=== PATIENT | male | born 1980 | race Caucasian/White ===

== ENCOUNTER 2025-05-05 11:49 | Observation (INO) | payer MEDICAID, SELFPAY ==
--- NOTE | ~2025-05-05 | CT_ITS ---
EXAM: CT abdomen pelvis w con - 05/05/2025 13:08 CDT History: 44 years old Male with left sided abd pain. TECHNIQUE: Multidetector CT of the abdomen and pelvis with intravenous contrast. Coronal and sagitta l reformats were also provided for review. Automatic exposure control was used for this study. CONTRAST: 100 cc of Optiray 350 was used for this study. COMPARISON: None Available. FINDINGS: VISUALIZED CHEST: Mild dependent changes. ABDOMEN and PELVIS: LIVER: Fatty infiltration along the falciform ligament. GALLBLADDER: No calcified gallstones. BILE DUCTS: No dilatation. SPLEEN: Within normal limits. PANCREAS: Within normal limits. ADRENAL GLANDS: Within normal limits. KIDNEYS and URETERS: No hydronephrosis or hydroureter. No nephroureterolithiasis. URINARY BLADDER: Moderate diffuse thickening of the urinary bladder wall. STOMACH and BOWEL: Multiple fluid-filled distended loops of bowel are seen, a nonspecific finding and can be seen in enteritis. REPRODUCTIVE ORGANS: Enlarged prostate. MESENTERY/PERITONEAL CAVITY: No free fluid or pneumoperitoneum. LYMPH NODES: No abdominal or pelvic lymphadenopathy. ABDOMINAL WALL: Within normal limits. VASCULATURE: Within normal limits. MUSCULOSKELETAL: Multilevel degenerative changes of the spine. IMPRESSION: 1. Moderate diffuse thickening of the urinary bladder wall. Correlate with urinalysis to rule out ac scarlett cystitis. 2. Multiple fluid-filled distended loops of bowel are seen, a nonspecific finding and can be seen in enteritis. 3. Enlarged prostate Reviewed, dictated and finalized at location A. IMPRESSION: 1. Moderate diffuse thickening of the urinary bladder wall. Correlate with uri nalysis to rule out acute cystitis. 2. Multiple fluid-filled distended loops of bowel are seen, a nonspecific find ing and can be seen in enteritis. 3. Enlarged prostate
--- NOTE | ~2025-05-05 | CT_ITS ---
EXAM: CT brain wo con - 05/05/2025 13:04 CDT History: 44 years old Male with ams COMPARISON: None available. PROCEDURE: CT of the head without contrast. Axial, sagittal and coronal reformatted planes were lizzy luated. Automatic exposure control was used for this study. FINDINGS: Evaluation is limited secondary to artifact caused by the patient's motion. BRAIN PARENCHYMA: No acute hemorrhage. No mass effect or herniation. Guzman-white matter differentiatio n is maintained. Normal appearance of cortex. VENTRICLES/ EXTRA-AXIAL SPACES: No hydrocephalus or extra-axial fluid collection. EXTRACRANIAL STRUCTURES: No calvarial fracture. IMPRESSION: No evidence for acute intracranial hemorrhage or calvarial fracture. Reviewed, dictated and finalized at location A.
[2025-05-05 11:51] VITALS: BP 131/94; PULSE 94; RESP 20; TEMP 36.9; O2SAT 98
--- NOTE | 2025-05-05 12:02 | ECG_ITS ---
Test Date: 2025-05-05 12:06:51 Measurements Intervals [place]ye Rate: 92 P: 11 AL: 112 QRS: 55 QRSD: 90 T: 38 QT: 359 QTc: 444 Interpretive Statements SINUS RHYTHM WITH SHORT AL INTERVAL ABNORMAL ECG No previous ECG available for comparison Electronically Signed On 05-05-2025 14:08:07 CDT by Dae Mckenzie M.D.
[2025-05-05 12:15] VITALS: BP 136/98; PULSE 83; RESP 19; O2SAT 94
[2025-05-05 12:21] LABS: Hematocrit 44.1 % (42.0-52.0); Hemoglobin 15.4 g/dL (14.0-18.0); Immature Granulocyte Percent A 0.3 % (0-0.5); Lymphocytes Absolute Auto 1.40 K/mm3 (0.9-3.2); Mean Corpuscular HGB Conc 34.9 g/dl (32-36); Mean Corpuscular Hemoglobin 28.9 pg (26-34); Mean Corpuscular Volume 82.9 fl (80-100); Nucleated Red Blood Cells Absolute Auto 0.000 K/mm3 (0.0-0.012); Nucleated Red Blood Cells Perc 0.0 % (0.0-0.2); Platelet Count Result 223 k/mm3 (150-375); Red Blood Count 5.32 M/mm3 (4.6-6.20); White Blood Count 7.0 K/mm3 (4.5-10.0)
[2025-05-05 12:34] LABS: INR 1.1; Prothrombin Time 13.7 Seconds (11.1-14.7)
[2025-05-05 12:35] LABS: Partial Thromboplastin Time 25.0 Seconds (22.3-36.8)
[2025-05-05 12:41] LABS: Alanine Aminotransferase 39 U/L (6-50); Albumin Level 4.3 g/dL (3.5-5.1); Alkaline Phosphatase 73 U/L (38-126); Anion Gap 8 mmol/L (4-12); Aspartate Amino Transferase 48 U/L (17-59); Bilirubin,Total 1.0 mg/dL (0.2-1.3); Blood Urea Nitrogen 14 mg/dL (9-20); Calcium 9.2 mg/dL (8.4-10.2); Carbon Dioxide 27 mmol/L (22-30); Chloride 104 mmol/L (98-107); Estimated CRCL calculation 99 ml/min; Estimated Glomerular Filt Rate > 60; Glucose 97 mg/dL (65-110); Potassium 3.1 mmol/L (3.4-5.0); Sodium 139 mmol/L (137-145); Total Protein 7.2 g/dL (6.3-8.2)
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
[2025-05-05 13:29] LABS: Add Urine Microscopic? YES; Appearance Urine Clear (Clear); Glucose Urine UA Negative (Negative); Leukocyte Esterase Ur Trace LEU/UL (Negative); Need Manual Microscopic Reviewed; Nitrate Urine Negative (Negative); Non Pathogenic Casts 0-2; Specific Grav Ur 1.025 (1.001-1.035)
[2025-05-05 14:15] VITALS: BP 134/87; PULSE 89; RESP 20; O2SAT 97
--- OUTSIDE RECORDS SUMMARY | 2025-05-05 14:27 | XMS_ITS | Clinical Summary ---
Author Organization [employer] [address] [place] [address] Address [address] [place] [address] Care Team Providers Care Nurse Practitioner Hospitalist Name Role Phone Angie Delgado DO Primary Care Provider [phone] Allergies No known active allergies Medications lamoTRIgine (LaMICtal) 200 mg tabletIndicatio ns:Anxiety associated with depression,PTSD (post-traumatic stress disorder) Take 1 Tablet (200 mg) by mouth daily. 30 Tablet 3 024 Active Blood Pressure Monitor KitIndications: Benign essential hypertension Use daily to check blood pressure 1 Each 024 Active fluvoxaMINE (LUVOX) 100 mg tablet Take 100 mg by mouth daily at bedtime. 025 Active rimegepant (Nurtec ODT) 75 mg Tablet, Rapid DissolveIndicat ions:Migraine without status migrainosus, not intractable, unspecified migraine type Take one tablet by mouth as a single dose. Max 75mg in 24 hours 9 Tablet 5 025 Active traZODone (DESYREL) 50 mg tablet Take 50 mg by mouth daily at bedtime. 025 Active hydrOXYzine HCL (ATARAX) 50 mg tablet Take 50 mg by mouth 4 times daily as needed for Anxiety. 025 Active propranoloL (INDERAL LA) 60 mg Long Acting 24 hour capsuleIndicati ons:Migraine without status migrainosus, not intractable, unspecified migraine type Take 1 Capsule (60 mg) by mouth daily. 30 Capsule 3 025 Active cyclobenzaprine (FLEXERIL) 5 mg TabletIndicatio ns:Muscle spasm Take 1 Tablet (5 mg) by mouth 3 times daily as needed for Spasm. 20 Tablet 025 Active TESTOSTERONE ENANTHATE IM Inject by intramuscular injection. Receiving weekly through [facility] Active losartan (COZAAR) 50 mg tabletIndicatio ns:Benign essential hypertension TAKE 1 TABLET(50 MG) BY MOUTH DAILY 100 Tablet 3 025 Active propranoloL (INDERAL) 10 mg tabletIndicatio ns:Anxiety associated with depression,PTSD (post-traumatic stress disorder) Take 1 Tablet (10 mg) by mouth 3 times daily. 90 Tablet 5 024 2024 Discontinued(A lternate therapy prescribed) losartan (COZAAR) 50 mg tabletIndicatio ns:Benign essential hypertension Take 1 Tablet (50 mg) by mouth daily. 90 Tablet 3 024 2024 Discontinued Hospital, Clinic, or Other Facility Administered Medication Ordered Dose Route Frequency Start Date End Date Status ketorolac (TORADOL) injection 10 mgIndications:Othe r migraine with status migrainosus, not intractable 10 mg IM ONE TIME ONLY 04/14/2025 04/14/2025 Discontinu ed ketorolac (TORADOL) injection 30 mgIndications:Othe r migraine with status migrainosus, not intractable 30 mg IM ONE TIME ONLY 04/14/2025 04/14/2025 Ended Active Problems Problem Noted Date Diagnosed Date ADHD 06/16/2024 PTSD (post-traumatic stress disorder) 12/11/2023 Benign essential hypertension 12/11/2023 MADISON (obstructive sleep apnea) 12/11/2023 RAHEL (generalized anxiety disorder) 05/01/2022 Gastroesophageal reflux disease 05/01/2022 Hypertension 05/01/2022 Recurrent major depressive disorder 05/01/2022 Obstructive sleep apnea 05/01/2022 Encounters Date Type Department Care Team Description 04/28/2025 Refill [facility] Internal Medicine [place] Christensen [address] [facility] [address] [place] [phone] Angie Delgado DO Benign essential hypertension 04/22/2025 Telephone [facility] Virtual Neurology [address] [place] [address] Zina Oh RN Follow Up (Neurology) 04/19/2025 Telephone [facility] Internal Medicine [place] Christensen [address] [facility] [address] [place] [phone] Angie Delgado DO Paperwork 04/15/2025 10:30 AM CDT Office Visit [facility] Internal Medicine [place] Christensen [address] [facility] [address] [place], [place] [phone] Angie Delgado DO Migraine without status migrainosus, not intractable, unspecified migraine type (Primary Dx); Muscle spasm; Benign essential hypertension; Anxiety associated with depression; PTSD (post-traumatic stress disorder) 04/14/2025 4:40 PM CDT Office Visit [facility] [place] [address] [address] [facility] [place], [place] [phone] Sheila Joseph NP Other migraine with status migrainosus, not intractable (Primary Dx); Nausea 04/12/2025 Telephone [facility] Internal Medicine [place] [address] [address] [facility] [address] [place], [place] [phone] Angie Delgado DO Results (Blood counts, kidney function, liver function, cholesterol levels look good. No indication of diabetes.) 04/12/2025 Results Follow-Up [facility] Internal Medicine [place] [address] [address] [facility] [address] [place] [phone] Angie Delgado DO CBC WITHOUT DIFFERENTIAL, COMPREHENSIVE METABOLIC PANEL, HEMOGLOBIN A1C, LIPID PANEL 03/14/2025 4:30 PM CDT Office Visit [facility] [place] [address] [place] [phone] Shannon Horvath MD Other migraine without status migrainosus, not intractable (Primary Dx) from Last 3 Months Immunizations Immunization Administration Dates Next Due (SPIKEVAX) (12 YRS UP PRIMAR Y SERIES) COVID-19 VACCINE - MRNA-1273(PF) 100 MCG/0.5 ML IM SUSP 09/10/2021 INFLUENZA VACCINE QUADRIVALENT 6 MOS UP PF IM Influenza Seasonal Unspecified Formulation PF IM 08/27/2024 Social History Tobacco Use Types Packs/Day Years Used Date Smoking Tobacco: Never Passive Smoke Exposure: Never Smokeless Tobacco: Never Tobacco Cessation:Counseling Given: Not Answered Alcohol Use Standard Drinks/Week Comments Not Currently 0 (1 standard drink = 0.6 oz pur e alcohol) Sex and Gender Information Value Date Recorded Sex Assigned at Not on file Legal Sex Male 1:36 PM INFORMATION MANAGEMENT SPECIALIST Gender Identity Not on file Sexual Orientation Not on file Last Filed Vital Signs Vital Sign Reading Time Taken Comments Blood Pressure 118/70 04/15/2025 10:17 AM CDT Pulse 76 04/15/2025 10:17 AM CDT Temperature 36.4 C (97.6 F) 04/15/2025 10:17 AM CDT Respiratory Rate 18 04/14/2025 4:47 PM CDT Oxygen Saturation 96% 04/15/2025 10:17 AM CDT Inhaled Oxygen Concentration - - Weight 89.4 kg (197 lb) 04/15/2025 10:17 AM CDT Height 182.9 cm (6') 04/15/2025 10:17 AM CDT Body Mass Index 26.72 04/15/2025 10:17 AM CDT Plan of Treatment Upcoming Encounters Date Type Department Care Team (Late st Contact Info) Description 12/17/2025 11:00 AM INFORMATION MANAGEMENT SPECIALIST Office Visit [facility] Internal Medicine [place] Christensen [address] [facility] [address] [place] [phone] [place] [address] [facility] [address] [place] [address] Health Maintenance Due Date Last Done Comments HPV VACCINES (1 - Male 3-dose series) 1996 DTAP/TDAP/TD VACCINES (1 - Tdap) 2000 HEPATITIS B VACCINES (1 of 3 - 19+ 3-dose series) 2000 COVID-19 Vaccine (3 - 2023- season) 06/14/202408/2022, 09/10/2021 INFLUENZA VACCINE (#1) 2025 , 08/27/2024, 07/24/2022 Preventative Visit-Managed Medicaid 12/12/2025 12/11/2024, 12/11/2023, 02/20/2016 Pre-Diabetes and Diabetes Screening 04/09/202804/09, 02/12/2024 Procedures Procedure Name Priority Date/Time Associated Diagnosis Comments LIPID PANEL Routine 04/09/2025 12:30 PM CDT MADISON (obstructive sleep apnea) Benign essential hypertension Annual physical exam Screening for cardiovascular condition HEMOGLOBIN A1C Routine 04/09/2025 12:30 PM CDT MADISON (obstructive sleep apnea) Benign essential hypertension Annual physical exam Screening for diabetes mellitus COMPREHENSIVE METABOLIC PANEL Routine 04/09/2025 12:30 PM CDT MADISON (obstructive sleep apnea) Benign essential hypertension Annual physical exam CBC WITHOUT DIFFERENTIAL Routine 04/09/2025 12:30 PM CDT MADISON (obstructive sleep apnea) Benign essential hypertension Annual physical exam from Last 3 Months Results * CBC WITHOUT DIFFERENTIAL (04/09/2025 12:30 PM CDT) WBC 4.5 3.8 - 10.8 Thousand/u L [facility] RBC 4.98 4.20 - 5.80 Million/uL [facility] HEMOGLOBIN 14.6 13.2 - 17.1 g/dL [facility] HEMATOCRIT 44.8 38.5 - 50.0 % [facility] MCV 90.0 80.0 - 100.0 fL [facility] MCH 29.3 27.0 - 33.0 pg [facility] MCHC 32.6 32.0 - 36.0 g/dL [facility] Comment: For adults, a slight decrease in the calculated MCHC value (in the range of 30 to 32 g/dL) is most likely not clinically significant; however, it should be interpreted with caution in correlation with other red cell parameters and the patient's clinical condition. RDW 13.9 11.0 - 15.0 % [facility] PLATELETS 191 140 - 400 Thousand/u L [facility] MPV 9.1 7.5 - 12.5 fL [facility] Comment: FASTING:YES FASTING: YES Test Performed at: [facility] [address] [place] [address] [facility] Blood 04/09/2025 12:3 0 PM CDT 04/09/2025 12:30 PM CDT Angie Delgado DO HEMATOLOGY ORDERABLES Final Resu lt Performing Organization Address City/[facility]/ZIP Code Phone Number [facility] [phone] [place] [address] [place] [address] * HEMOGLOBIN A1C (04/09/2025 12:30 PM CDT) HEMOGLOBIN A1C 5.2 <5.7 % of total Hgb [facility] Comment: For the purpose of screening for the presence of diabetes: <5.7% Consistent with the absence of diabetes 5.7-6.4% Consistent with increased risk for diabetes (prediabetes) > or =6.5% Consistent with diabetes This assay result is consistent with a decreased risk of diabetes. Currently, no consensus exists regarding use of hemoglobin A1c for diagnosis of diabetes in children. According to [place] Diabetes Association (ADA) guidelines, hemoglobin A1c <7.0% represents optimal control in non- diabetic patients. Different metrics may apply to specific patient populations. Standards of Medical Care in Diabetes(ADA). ESTIMATED AVERAGE GLUCOSE (MG/DL) 103 mg/dL [facility]Isaiah [facility] ESTIMATED AVERAGE GLUCOSE (MMOL/L) 5.7 mmol/L ConsumrDelilah joselin [facility] Comment: FASTING:YES FASTING: YES Test Performed at: [employer] [place] [address] [place] [address] NelLuz Abdi Blood 04/09/2025 12:3 0 PM CDT 04/09/2025 12:30 PM CDT Angie Sandy DO CHEMISTRY ORDERABLES Final Resul t [facility] [phone] [place] [address] [address] [place] [phone] * LIPID PANEL (04/09/2025 12:30 PM CDT) CHOLESTEROL 148 <200 mg/dL [facility] joselin [facility] HDL 54 > OR = 40 mg/dL ConsumrDelilah joselin [facility] TRIGLYCERIDE 54 <150 mg/dL [facility] LDL CALCULATED 81 mg/dL (calc) [facility] Comment: Reference range: <100 Desirable range <100 mg/dL for primary prevention; <70 mg/dL for patients with CHD or diabetic patients with > or = 2 CHD risk factors. LDL-C is now calculated using the Krista calculation, which is a validated novel method providing better accuracy than the Friedewald equation in the estimation of LDL-C. Ravinder MONTOYA et al. DANNY. 2013;310(20): 8777-3704 (http://education.[employer]faq/ATD024) CHOL/HDL RATIO 2.7 <5.0 (calc) [facility] NON-HDL CHOLESTEROL 94 <130 mg/dL (calc) [facility] Comment: For patients with diabetes plus 1 major ASCVD risk factor, treating to a non-HDL-C goal of <100 mg/dL (LDL-C of <70 mg/dL) is considered a therapeutic option. Test Performed at: [facility] [place] [address] [address] [place] [address] NelLatasha Abdi Blood 04/09/2025 12:3 0 PM CDT 04/09/2025 12:30 PM CDT us Angie Delgado DO CHEMISTRY ORDERABLES Final Resul t [facility] [phone] [place] [address] [address] [place] [phone] * (ABNORMAL) COMPREHENSIVE METABOLIC PANEL (04/09/2025 12:30 PM CDT) GLUCOSE 100(H) 65 - 99 mg/dL [facility] Comment: Fasting reference interval For someone without known diabetes, a glucose value between 100 and 125 mg/dL is consistent with prediabetes and should be confirmed with a follow-up test. BUN 39(H) 7 - 25 mg/dL [facility] CREATININE 1.09 0.60 - 1.29 mg/dL [facility] GFR 86 > OR = 60 mL/min/1. 73m2 [facility] BUN/CREAT RATIO 36(H) 6 - 22 (calc) [facility] SODIUM 141 135 - 146 mmol/L [facility] POTASSIUM 4.6 3.5 - 5.3 mmol/L [facility] joselin Ahumada CHLORIDE 104 98 - 110 mmol/L [facility] joselin Ahumada CO2 29 20 - 32 mmol/L [facility] joselin Ahumada CALCIUM 9.4 8.6 - 10.3 mg/dL [facility] TOTAL PROTEIN 6.7 6.1 - 8.1 g/dL [facility] joselin [facility]um[facility] ALBUMIN 4.5 3.6 - 5.1 g/dL [facility] GLOBULIN 2.2 1.9 - 3.7 g/dL (calc) [facility] ALBUMIN/GLOBULIN RATIO 2.0 1.0 - 2.5 (calc) [facility] joselin Ah[facility] BILIRUBIN TOTAL 0.5 0.2 - 1.2 mg/dL [facility] ALKALINE PHOSPHATASE 68 36 - 130 U/L [facility] AST 33 10 - 40 U/L [facility] ALT 29 9 - 46 U/L [facility] Ahumada Comment: FASTING:YES FASTING: YES Test Performed at: [place] [address] [place] [address] Darren Wilkinson Blood 04/09/2025 12:3 0 PM CDT 04/09/2025 12:30 PM CDT us Angie Azim DO CHEMISTRY ORDERABLES Final Resul t [facility] [phone] [place] [address] [address] [place] [phone] from Last 3 Months Insurance [place] PHIPPS [id number] [facility] [address] [facility] [id number] [facility] [address] [address] Care Teams Nurse Practitioner Hospitalist Relationship Specialty [place] [address] [facility] [address] [place] [phone] PCP - General Internal Medicine 12/11/23
--- OUTSIDE RECORDS SUMMARY | 2025-05-05 14:27 | XMS_ITS | Continuity of Care Document ---
Author Organization [facility] Address [address] [place] [address] Care Team Providers Care Computer Engineering Professor Name Role Phone Unavailable Unavailable Unavailable Procedures Procedure Date Case Management By T In Office 2022 Advance Directives Directive Yes / No Effective Date File Name No Information Encounters Encounter Description Practice Location Reason(s) For Visit Diagnoses Date Provider [place], [address] [place], [place], [id number], [facility] [id number] [place] Alcohol dependence, uncomplicated No Information Family History Family Member Type Diagnosis Age At Onset No Information Payers Payer name Insurance type Covered constitution party ID Authoriza tion(s) [facility] [id number] 1 Social History Type Description Quantity Date Captured Comments Sex Male Smoking Status No Information Chief Complaint And Reason For Visit No Information Plan Of Treatment Date Type Action Status Goal Depression screening. Due on due Goal Unhealthy drug use screening . Due on due Goal Td vaccine. Due on 23 due Goal Hepatitis C screening. Due o n due Goal Influenza vaccine. Due on due Goal Tdap. Due on due Goal Lipid panel. Due on 023 due History Of Present Illness Encounter Date Complaint History Of Prese nt Illness No Information Instructions Date Instruction Additional Infor mation No Information Assessments Type Assessment Date assessment Alcohol dependence, uncomplicate d
--- OUTSIDE RECORDS SUMMARY | 2025-05-05 14:27 | XMS_ITS | Encounter Summary ---
Author Organization [facility] Address [address] [place] [address] Care Team Providers Care Information Scientist Name Role Phone Angie Delgado DO Primary Care Provider [phone] Encounter Details Date Type Department Care Team (Late Contact Info) Description 12/14/2024 Telephone [facility] Internal Medicine Rachell Christensen [address] [place] [address] [place] [address] [address] [place] [address] Social History Tobacco Use Types Packs/Day Years Used Date Smoking Tobacco: Never Passive Smoke Exposure: Never Smokeless Tobacco: Never Alcohol Use Standard Drinks/Week Comments Not Currently 0 (1 standard drink = 0.6 oz pur e alcohol) Sex and Gender Information Value Date Recorded Sex Assigned at Not on file Legal Sex Male 1:36 PM CARD BOXER Gender Identity Not on file Sexual Orientation Not on file documented as of this encounter Plan of Treatment Upcoming Encounters Date Type Department Care Team (Late Contact Info) Description 12/17/2025 11:00 AM CARD BOXER Office Visit [facility] Internal Medicine Rachell Christensen [address] [place] [address] Sandy AngieDO [address] [place] [address] documented as of this encounter Visit Diagnoses Not on filedocumented in this encounter Care Teams Information Scientist Relationship Specialty [place] [address] [place] [address] PCP - General Internal Medicine 12/11/23 documented as of this encounter
--- OUTSIDE RECORDS SUMMARY | 2025-05-05 14:27 | XMS_ITS | Encounter Summary ---
Author Organization [facility] Address [address] [place] [address] Care Team Providers Care Quality Assurance Associate Name Role Phone SandyMichelAngie DO Primary Care Provider [phone] Reason for Visit * Reason Comments Paperwork Encounter Details Date Type Department Care Team (Late st Contact Info) Description 04/19/2025 Telephone [facility] Internal Medicine Rachell Fermin [address] [place] [address] [place] [address] [address] [place] [address] Paperwork Social History Tobacco Use Types Packs/Day Years Used Date Smoking Tobacco: Never Passive Smoke Exposure: Never Smokeless Tobacco: Never Alcohol Use Standard Drinks/Week Comments Not Currently 0 (1 standard drink = 0.6 oz pur e alcohol) Sex and Gender Information Value Date Recorded Sex Assigned at Not on file 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 Topic: CPA Information Request - Paperwork Requests >> Apr 19, 2025 2:31 PM Yudi Carbajal wrote: Caller Name: Greg Ramirez Lise Callback Number: Telephone Information: Call Notes (not required): Greg is asking for a excuse from work for yesterday and today because of his migraines. He has seen Sandy in regards to the Migraines on 04/15/25 Caller is requesting: Work/School Absence Letter Has the patient been seen for this in the last 3 months? Yes Patient is requesting a letter to excuse patient from work Where was paperwork submitted: How does patient want paperwork received: [email or web address] Paperwork Due Date: as quickly as possible documented in this encounter Plan of Treatment Upcoming Encounters Date Type Department Care Team (Late st Contact Info) Description 12/17/2025 11:00 AM RAILS DEVELOPER Office Visit [facility] Internal Medicine Rachell Christensen [address] [place] [address] [place] [address] [place] [address] documented as of this encounter Visit Diagnoses Not on filedocumented in this encounter Care Teams Quality Assurance Associate Relationship Specialty [place] [address] [place] [phone] PCP - General Internal Medicine 12/11/23 documented as of this encounter
--- OUTSIDE RECORDS SUMMARY | 2025-05-05 14:27 | XMS_ITS | Continuity of Care Document ---
Author Organization [facility] Address [address] [place] [address] Phone Care Team Providers Care Senior Science Consultant Name Role Phone Unavailable Unavailable Unavailable Allergies, Adverse Reactions, Alerts Substance Reaction Status Criticality No Known Allergies Active No Inform ation Medications Medication Instructions Dosage Effective Dates (start - stop) Status Comments Abilify 5 mg tablet take 1 tablet by oral route every day 5 MG - No Longer Active clonidine HCl 0.1 mg tablet take 1 tablet by oral route 1x now as needed - No Longer Active clonazepam 0.5 mg tablet take 0.5 tablet by oral route 2 times every day 0.25 MG - No Longer Active fluvoxamine 100 mg tablet take 1 tablet by oral route every day at bedtime 100 MG - No Longer Active propranolol 10 mg tablet take 1 tablet by oral route 2 times every day as needed for Anxiety 10 MG - No Longer Active hydroxyzine HCl 50 mg tablet take 1 tablet by mouth once at bedtime as needed for insomnia - No Longer Active ibuprofen 600 mg tablet ibuprofen 600mg PO Q 6 hrs PRN fever>100.4/pain as needed for Pain and/or Fever - No Longer Active Procedures Procedure Date Non-billable Service Non-billable Service Non-billable Service Non-billable Service EST PT 15 MIN EST PT 25 MIN EST PT 25 MIN Non-billable Service Non-billable Service Non-billable Service EST PT 25 MIN Non-billable Service Non-billable Service Non-billable Service EST PT 25 MIN EST PT 40 MIN Non-billable Service Non-billable Service PSYCHIATRIC DIAGNOSTIC EVALUATION WITH M EDICAL SER Non-billable Service Non-billable Service Non-billable Service Non-billable Service Advance Directives Directive Yes / No Effective Date File Name No Information Encounters Encounter Description Practice Location Reason(s) For Visit Diagnoses Date Provider Providers Copied on Encounter [facility], [address], [place], [place], [id number], tel:[phone] [facility] 23 Hour No Information 3 No Information [facility], [address], [place], [place], [address], [place] tel:[phone] [facility] 23 Hour Unspecified mood [affective] disorder 3 Campbell Raven MccannNaima. [address] [place] [address], [id number], [place]. tel:[phone] [facility], [address], [place], [place], [address], [place] tel:[phone] [facility] 23 Hour Unspecified mood [affective] disorder 3 [facility]. [address] [facility], [place], [place], [address], [place]. tel:[phone] [facility], [address], [place], [place], [address], [place] tel:[phone] [facility] 23 Hour Unspecified mood [affective] disorder 3 Jasper ross RN [facility]. [address], [place], [place], [address], [place]. [phone] [facility], [address], [place], [place], [address], [place] tel:[phone] [facility] 23 Hour [place] Unspecified mood [affective] disorder Mar-0 9-202 3 Leonel ARVIZU [facility] Brent. [address] [facility], [place], [address], [place]. tel:[phone] [facility], [address], [place], [place], [address], [place] tel:[phone] [facility] 23 Hour [place] Unspecified mood [affective] disorderAnxiety disorder, unspecified Mar-0 8-202 3 Jennifer Machado. [address] [facility], [place], [place], [address], [place]. tel:[phone] [facility], [address], [place], [place], [address], [place] tel:[phone] [facility] 23 Hour [place] Unspecified mood [affective] disorderAnxiety disorder, unspecified Mar-0 8-202 3 Gabriele [facility] Kelly. [address] [facility], [place], [place], [address], [place]. tel:[phone] [facility], [address], [place], [place], [address], [place] tel:[phone] [facility] 23 Hour [place] Unspecified mood [affective] disorderAnxiety disorder, unspecified Mar-0 7-202 3 Félix PMDamon Carter. [address] [facility], [place], [place], [address], [place]. tel:[phone] [facility], [address], [place], [place], [address], [place] tel:[phone] [facility] 23 Hour Unspecified mood [affective] disorder Mar-0 6-202 3 No Information [facility], [address], [place], [place], [address], [place] tel:[phone] [facility] 23 Hour Unspecified mood [affective] disorder Mar-0 3 China Real. [address] [facility], [place], [place], [address], [place]. tel:[phone] [facility], [address], [place], [place], [address], [place] tel:[phone] [facility] 23 Hour Unspecified mood [affective] disorderAnxiety disorder, unspecified Mar-0 202 3 FeliciaGerardoSeveriano PMHNP Raul. [address] [facility], [place], [place], [address], [place]. tel:[phone] [facility], [address], [place], [place], [address], [place] tel:[phone] [facility] 23 Hour Unspecified mood [affective] disorder Mar-0 3 China Real. [address] [facility], [place], [place], [address], [place]. tel:[phone] [facility], [address], [place], [place], [address], [place] tel:[phone] [facility] 23 Hour Unspecified mood [affective] disorder Mar-0 3 Louie Vogt. [address] [place] [address], [place], [place], [address], [place]. tel:[phone] [facility], [address], [place], [place], [address], [place] tel:[phone] [facility] 23 Hour Unspecified mood [affective] disorder Mar-0 3 No Information [facility], [address], [place], [place], [address], [place] tel:[phone] [facility] 23 Hour Unspecified mood [affective] disorderAnxiety disorder, unspecified Mar-0 202 3 No Information [facility], [address], [place], [address], [place] tel:[phone] [facility] 23 Hour [place] Unspecified mood [affective] disorderAnxiety disorder, unspecified Mar-0 3 Félix PMHNDamon Carter. [address] [facility], [place], [address], [place]. tel:[phone] [facility], [address], [place], [address], [place] tel:[phone] [facility] 23 Hour Unspecified mood [affective] disorder Mar-0 3 Isis ARVIZU [facility] Baldomero. [address] [facility], [place], [address], [place]. tel:[phone] [facility], [address], [place], [place], [address], [place] tel:[phone] [facility] 23 Hour Unspecified mood [affective] disorder Dec-0 3 Ian [facility]ZU [facility] Wei. [address] [place] [address], [place], [place], [address], [place]. tel:[phone] [facility], [address], [place], [place], [address], [place] tel:[phone] [facility] 23 Hour Unspecified mood [affective] disorderUnspecifi ed anxiety disorder Dec-0 3 No Information [facility], [address], [place], [place], [address], [place] tel:[phone] [facility] 23 Hour No Information Mar-0 3 Isis ARVIZU Damon Alexandre. [address] [facility], [place], [place], [address], [place]. tel:[phone] [facility], [address], [place], [place], [address], [place] tel:[phone] [facility] 23 Hour No Information Mar-0 3 James Blair. [address] [place] [address], [place], [place], [address], [place]. tel:[phone] Family History Family Member Type Diagnosis Age At Onset No Information Payers Payer name Insurance type Covered libertarian ID Saundra valle(s) [facility] [id number] Social History Type Description Quantity Date Captured Comments Sex Male Smoking Status No Information Chief Complaint And Reason For Visit No Information Reason For Referral Reason For Referral No Information History Of Present Illness Encounter Date Complaint History Of Prese nt Illness No Information Functional Status Date Functional Assessmen t No Information Instructions Date Instruction Additional Infor mation No Information Assessments Type Assessment Date No Information Patient Care Teams Name Effective Dates (start - stop) Status Members No Information
--- OUTSIDE RECORDS SUMMARY | 2025-05-05 14:27 | XMS_ITS | Encounter Summary ---
Author Organization [facility] Address [address] [place] [address] Care Team Providers Care Club Attendant Name Role Phone SandyAngie Primary Care Provider [phone] Reason for Visit * Reason Comments Provider Call Encounter Details Date Type Department Care Team (Late st Contact Info) Description 02/13/[address] 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 Topic: [id number] Call >> February 13, 2024 11:12 AM Yoli Scott wrote: Caller is requesting to speak with Clinical Care Team. Caller Name: Kamla-[facility] Callback Number: [phone] Clinician Type: Healthcare Professional Call Notes: Kamla states a new prescription was faxed to the office on 02.07.2024. She is wanting toknow if it was received. Is this addressing an immediate patient care need? No documented in this encounter Plan of Treatment Upcoming Encounters Date Type Department Care Team (Late st Contact Info) Description 12/17/2025 11:00 AM TOOL DRESSER Office Visit [facility] Internal Medicine Rachell Christensen [address] [place] [address] [place] [address] [facility] [address] [place] [address] documented as of this encounter Visit Diagnoses Not on filedocumented in this encounter Care Teams Club Attendant Relationship Specialty [place] [address] [facility] [address] [place] [phone] PCP - General Internal Medicine 12/11/23 documented as of this encounter
--- OUTSIDE RECORDS SUMMARY | 2025-05-05 14:27 | XMS_ITS | Encounter Summary ---
Author Organization [facility] Address [address] [place] [address] Care Team Providers Care Solution Mixer Name Role Phone Angie Delgado Primary Care Provider Reason for Visit * Reason Comments Clinical Consult Before Scheduling Encounter Details Date Type Department Care Team (Late st Contact Info) Description 06/11/2024 Telephone [facility] Internal Medicine Rachell Fermin [address] [place] [address] [place] [address] [address] [place] [address] Clinical Consult Before Scheduling Social History Tobacco Use Types Packs/Day Years Used Date Smoking Tobacco: Never Passive Smoke Exposure: Never Smokeless Tobacco: Never Alcohol Use Standard Drinks/Week Comments Not Currently 0 (1 standard drink = 0.6 oz pur e alcohol) Sex and Gender Information Value Date Recorded Sex Assigned at Not on file Legal Sex Male 1:36 PM CASE MGR Gender Identity Not on file Sexual Orientation Not on file documented as of this encounter Miscellaneous Notes * Telephone Encounter - David Lamb - 06/11/2024 1:37 PM CDT Copied from [facility] #[id number]. Topic: Symptomatic Care >> Jun 11, 2024 1:34 PM David Perez wrote: Caller has new symptoms and is seeking care. Age Range/Symptom: Adult: 18+ - Blood pressure concerns (high or low) Are you having any additional symptoms? Yes Caller Name: Greg Lezama Callback Number: [phone] (home) Call Notes: Anxiety with blood pressure going up for the pass month but really bad within the last 2 weeks documented in this encounter Plan of Treatment Upcoming Encounters Date Type Department Care Team (Late st Contact Info) Description 12/17/2025 11:00 AM CASE MGR Office Visit [facility] Internal Medicine Rachell Christensen [address] [facility] [address] [address] [place] [address] [place] [address] [facility] [facility] [address] [place] [address] documented as of this encounter Visit Diagnoses Not on filedocumented in this encounter Care Teams Solution Mixer Relationship Specialty [place] [address] [facility] [address] [place] [address] PCP - General Internal Medicine 12/11/23 documented as of this encounter
--- OUTSIDE RECORDS SUMMARY | 2025-05-05 14:27 | XMS_ITS | Encounter Summary ---
Author Organization [facility] Address [address] [place] [address] Care Team Providers Care Jewelry Finisher Name Role Phone Angie Delgado DO Primary Care Provider [phone] Encounter Details Date Type Department Care Team (Latest Contact Info) Description 04/12/2025 Results Follow-Up [facility] Internal Medicine Rachell Christensen [address] [place] [address] [place] [address] [place] [address] CBC WITHOUT DIFFERENTIAL, COMPREHENSIVE METABOLIC PANEL, HEMOGLOBIN A1C, LIPID PANEL Social History Tobacco Use Types Packs/Day Years Used Date Smoking Tobacco: Never Passive Smoke Exposure: Never Smokeless Tobacco: Never Alcohol Use Standard Drinks/Week Comments Not Currently 0 (1 standard drink = 0.6 oz pur e alcohol) Sex and Gender Information Value Date Recorded Sex Assigned at Not on file Legal Sex 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 Gender Identity Not on file Sexual Orientation Not on file documented as of this encounter Plan of Treatment Upcoming Encounters Date Type Department Care Team (Late st Contact Info) Description 12/17/2025 11:00 AM EDUCATIONAL DIRECTOR Office Visit [facility] Internal Medicine Rachell Christensen [address] [place] [address] Amita DelgadoyaDO [address] [place] [address] documented as of this encounter Visit Diagnoses Not on filedocumented in this encounter Care Teams Jewelry Finisher Relationship Specialty [place] [address] [place] [id number] PCP - General Internal Medicine 12/11/23 documented as of this encounter
[2025-05-05 16:26] LABS: Cannabinoid Screen Urine Positive (Negative)
[2025-05-05 16:54] VITALS: BMI 22.8
[2025-05-05 18:07] VITALS: BMI 22.8
--- NOTE | 2025-05-05 18:30 | ADMGEN ---
This patient, Greg Lezama, was admitted to Medical Room 348-01. Patient/family oriented to hospital policies and general routines including ID bracelet, bed and alarms, visiting hours, pain management, procedures, bathroom and other care routines, personal items, smoking policy, room service/diet, and visiting hours. Information on how to activate the Rapid Response Team has been discussed. Patient/Family are encouraged to report perceived risks to care and to ask questions if they do not understand what they are told or what they should do.
[2025-05-05 20:00] VITALS: PULSE 81
[2025-05-05 20:10] VITALS: PULSE 89; RESP 20; O2SAT 97
[2025-05-05 22:50] VITALS: BP 127/84; PULSE 74; PULSE 94; RESP 18; TEMP 36.6; O2SAT 100
[2025-05-05] MEDS: PROPRANOLOL HCL 10 MG TABLET PO (22:50)
[2025-05-05] MEDS: POTASSIUM CHLORIDE 20 MEQ ER TABLET 40 MEQ PO (22:50)
[2025-05-05] MEDS: SODIUM CHLORIDE 0.9% IV 1,000 ML 999 ML IV CONT ×2 (22:53→23:55)
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
[2025-05-06] VITALS: PULSE 76
[2025-05-06] MEDS: SODIUM CHLORIDE 0.9% IV 400 ML 999 ML IV CONT (01:30)
[2025-05-06 04:00] VITALS: PULSE 72
[2025-05-06 04:58] VITALS: BP 137/82; PULSE 70; RESP 16; TEMP 36.5; O2SAT 100
[2025-05-06 06:30] LABS: Anion Gap 5 mmol/L (4-12); Blood Urea Nitrogen 13 mg/dL (9-20); Calcium 8.1 mg/dL (8.4-10.2); Carbon Dioxide 27 mmol/L (22-30); Chloride 103 mmol/L (98-107); Estimated CRCL calculation 115 ml/min; Estimated Glomerular Filt Rate > 60; Glucose 121 mg/dL (65-110); Magnesium 2.1 mg/dL (1.6-2.3); Potassium 3.6 mmol/L (3.4-5.0); Sodium 135 mmol/L (137-145)
[2025-05-06 07:09] LABS: HIV 1/2 Ab P24 Ag Result Negative (Negative)
--- NOTE | 2025-05-06 07:55 | PM.IMPN ---
Progress Note: A&P Assessment and Plan (1) Altered mental status: Qualifiers: Altered mental status type: delirium Qualified Code(s): R41.0 - Disorientation, unspecified Code(s): R41.82 - Altered mental status, unspecified Status: Acute (2) Urine drug test positive for stimulant: Code(s): R82.5 - Elevated urine levels of drugs, medicaments and biological substances Status: Acute (3) Acute hypokalemia: Code(s): E87.6 - Hypokalemia Status: Acute (4) Bipolar disorder: Qualifiers: Active/Remission status: currently active Current bipolar episode type: mixed Current episode severity: moderate Qualified Code(s): F31.62 - Bipolar disorder, current episode mixed, moderate Code(s): F31.9 - Bipolar disorder, unspecified Status: Acute (5) High risk sexual behavior: Qualifiers: High risk sexual behavior type: homosexual Qualified Code(s): Z72.52 - High risk homosexual behavior Code(s): Z72.51 - High risk heterosexual behavior Status: Acute (6) Anxiety: Code(s): F41.9 - Anxiety disorder, unspecified Status: Acute Subjective Date/time seen: 05/06/25 07:55 Objective Data Vital Signs Vital Signs: Vital Signs - 24 hr 05/05/25 11:51 05/05/25 12:15 05/05/25 12:15 Temperature 98.4 F Pulse Rate 94 83 Respiratory Rate 20 19 Blood Pressure 131/94 H 136/98 H Pulse Oximetry 98 94 94 Oxygen Delivery Room Air Room Air 05/05/25 14:15 05/05/25 20:00 05/05/25 20:10 Temperature Pulse Rate 89 81 89 Respiratory Rate 20 20 Blood Pressure 134/87 Pulse Oximetry 97 97 Oxygen Delivery Room Air 05/05/25 22:50 05/05/25 22:50 05/06/25 00:00 Temperature 97.8 F Pulse Rate 94 74 76 Respiratory Rate 18 Blood Pressure 127/84 Pulse Oximetry 100 Oxygen Delivery 05/06/25 04:00 05/06/25 04:58 Temperature 97.7 F Pulse Rate 72 70 Respiratory Rate 16 Blood Pressure 137/82 Pulse Oximetry 100 Oxygen Delivery Intake/Output Intake/Output: Intake & Output 05/03/25 05/04/25 05/05/2524/25 23:59 23:59 23:59 23:59 Intake Total 1000 3250 Balance 1000 3250 Meds/Results Medications: Active Medications Generic Name Dose Route Start Last Admin Trade Name Freq PRN Reason Stop Dose Admin Buspirone HCl 30 mg 05/05/25 22:25 05/05/25 22:51 Buspirone Hcl 10 Mg Tablet PO Not Given BID ARACELY Hydroxyzine HCl 50 mg 05/06/25 01:17 05/06/25 04:32 Hydroxyzine Hcl 25 Mg Tablet PO 50 mg Q6H PRN Administration anxiety Lamotrigine 200 mg 05/06/25 09:00 Lamotrigine 100 Mg Tablet PO DAILY ARACELY Losartan Potassium 50 mg 05/06/25 09:00 Losartan Potassium 50 Mg Tablet PO DAILY ARACELY Naproxen 500 mg 05/05/25 22:11 Naproxen 500 Mg Tablet PO BID PRN back pain Propranolol HCl 10 mg 05/05/25 22:10 05/05/25 22:50 Propranolol Hcl 10 Mg Tablet PO 10 mg Q12HR ARACELY Administration Trazodone HCl 50 mg 05/06/25 01:17 Trazodone Hcl 50 Mg Tablet PO HS PRN insomnia Radiology Results: ITS Impressions Abdomen/Pelvis CT 05/05/25 13:21 IMPRESSION: 1. Moderate diffuse thickening of the urinary bladder wall. Correlate with urinalysis to rule out acute cystitis. 2. Multiple fluid-filled distended loops of bowel are seen, a nonspecific finding and can be seen in enteritis. 3. Enlarged prostate Head CT 05/05/25 13:29 IMPRESSION: No evidence for acute intracranial hemorrhage or calvarial fracture. Labs Labs: Laboratory Results - last 24 hr 05/05/25 05/05/25 05/05/25 11:57 12:12 13:02 WBC 7.0 RBC 5.32 Hgb 15.4 Hct 44.1 MCV 82.9 MCH 28.9 MCHC 34.9 RDW 13.1 Plt Count 223 MPV 8.1 Immature Gran % (Auto) 0.3 Neut % (Auto) 72.4 Lymph % (Auto) 20.1 [place] % (Auto) 5.6 Eos % (Auto) 0.9 Baso % (Auto) 0.7 Lymph # (Auto) 1.40 [place] # (Auto) 0.4 Eos # (Auto) 0.1 Baso # (Auto) 0.1 Abs Immat Gran (auto) 0.02 Absolute Neuts (auto) 5.0 Absolute Nucleated RBC 0.000 Nucleated RBC % 0.0 PT 13.7 INR 1.1 APTT 25.0 Sodium 139 Potassium 3.1 L Chloride 104 Carbon Dioxide 27 Anion Gap 8 BUN 14 Creatinine 0.96 Estim Creat Clear Calc 99 Estimated GFR > 60 Glucose 97 POC Capillary Glucose 91 Calcium 9.2 Phosphorus Magnesium Total Bilirubin 1.0 AST 48 ALT 39 Alkaline Phosphatase 73 Total Protein 7.2 Albumin 4.3 Urine Color Yellow Urine Appearance Clear Urine pH 6.5 Ur Specific [place] 1.025 Urine Protein Trace Urine Glucose (UA) Negative Urine Ketones 1+ H Ur Blood (Man) Negative Urine Nitrate Negative Urine Bilirubin Negative Urine Urobilinogen 1.0 Add Ur Microanalysis Reviewed Leukocyte Esterase Rfl Trace H Urine RBC 0-2 Urine WBC 0-5 Ur Squamous Epith Cells None seen Urine Bacteria None seen Urine Casts 0-2 Urine Opiates Screen Negative Urine Methadone Screen Negative Ur Barbiturates Screen Negative Ur Phencyclidine Scrn Negative Ur Amphetamine Screen Positive A U Benzodiazepines Scrn Negative Urine Cocaine Screen Negative U Cannabinoids Screen Positive A HIV 1&2 Ab/P24 Ag 4thGn 05/06/25 05:35 WBC RBC Hgb Hct MCV MCH MCHC RDW Plt Count MPV Immature Gran % (Auto) Neut % (Auto) Lymph % (Auto) [place] % (Auto) Eos % (Auto) Baso % (Auto) Lymph # (Auto) [place] # (Auto) Eos # (Auto) Baso # (Auto) Abs Immat Gran (auto) Absolute Neuts (auto) Absolute Nucleated RBC Nucleated RBC % PT INR APTT Sodium 135 L Potassium 3.6 Chloride 103 Carbon Dioxide 27 Anion Gap 5 BUN 13 Creatinine 0.79 Estim Creat Clear Calc 115 Estimated GFR > 60 Glucose 121 H POC Capillary Glucose Calcium 8.1 L Phosphorus 3.5 Magnesium 2.1 Total Bilirubin AST ALT Alkaline Phosphatase Total Protein Albumin Urine Color Urine Appearance Urine pH Ur Specific [place] Urine Protein Urine Glucose (UA) Urine Ketones Ur Blood (Man) Urine Nitrate Urine Bilirubin Urine Urobilinogen Add Ur Microanalysis Leukocyte Esterase Rfl Urine RBC Urine WBC Ur Squamous Epith Cells Urine Bacteria Urine Casts Urine Opiates Screen Urine Methadone Screen Ur Barbiturates Screen Ur Phencyclidine Scrn Ur Amphetamine Screen U Benzodiazepines Scrn Urine Cocaine Screen U Cannabinoids Screen HIV 1&2 Ab/P24 Ag 4thGn Negative
[2025-05-06 09:35] VITALS: PULSE 87
[2025-05-06] MEDS: PROPRANOLOL HCL 10 MG TABLET PO (09:35)
[2025-05-06] MEDS: LOSARTAN POTASSIUM 50 MG TABLET PO (09:36)
--- NOTE | 2025-05-06 11:33 | PM.DS ---
DS: Admitting Diagnosis Discharge Date 05/06/25 Admitting Diagnosis Altered mental status Urine drug screen positive for amphetamines Hypokalemia Bipolar disorder High risk sexual behavior Anxiety DS: Discharge Diagnosis Discharge Diagnosis (1) Altered mental status: Qualifiers: Altered mental status type: delirium Qualified Code(s): R41.0 - Disorientation, unspecified Code(s): R41.82 - Altered mental status, unspecified Status: Acute (2) Urine drug test positive for stimulant: Code(s): R82.5 - Elevated urine levels of drugs, medicaments and biological substances Status: Acute (3) Acute hypokalemia: Code(s): E87.6 - Hypokalemia Status: Acute (4) Bipolar disorder: Qualifiers: Active/Remission status: currently active Current bipolar episode type: mixed Current episode severity: moderate Qualified Code(s): F31.62 - Bipolar disorder, current episode mixed, moderate Code(s): F31.9 - Bipolar disorder, unspecified Status: Acute (5) High risk sexual behavior: Qualifiers: High risk sexual behavior type: homosexual Qualified Code(s): Z72.52 - High risk homosexual behavior Code(s): Z72.51 - High risk heterosexual behavior Status: Acute (6) Anxiety: Code(s): F41.9 - Anxiety disorder, unspecified Status: Acute DS: Summary Hospital Course Reason for hospitalization: Altered mental status Urine drug screen positive for amphetamines Hypokalemia Bipolar disorder High risk sexual behavior Anxiety Hospital Course: Patient is a 45-year-old male with a past medical history of bipolar disorder, essential hypertension, anxiety and alcoholism in remission for 2.5 years who presented to the ER via EMS after he was found in his car altered and confused. When EMS arrived, patient was unresponsive. Patient's mental status improved while in the emergency department, but he remained confused and subsequently was admitted for delirium. CT head negative for acute process. UDS was found to be positive for cannabis and amphetamines although patient denied amphetamine use. He believes he could have been given something without his knowledge by some of the people that he has been hanging out with. He also reported high-risk sexual behavior. He denied current STI symptoms and HIV testing negative. RPR pending on discharge. UA showed trace LE and ketones. He was given IV fluids for concerns for dehydration. During his hospital stay, his mental status improved to baseline. Suspect his presentation was secondary to illicit substance use. While patient remained anxious, he was alert and oriented x4 without focal deficits discharge. He was not displaying signs of acute joselin. He denied suicidal ideation. He is currently following closely with psychiatry and was encouraged to restart counseling as he has not seen his counselor in 5 weeks. He was encouraged to continue his current psychiatric medications. He was provided with community resources from case management. Patient was also noted to be hypokalemic which resolved on discharge. Incidentally, CT A/P showed concerns for enteritis. Patient denied active abdominal pain, nausea, vomiting or diarrhea. His abdominal exam was benign on discharge. He was tolerating a regular diet. Patient was discharged in stable condition. Patient was provided with strict return precautions. Status at Discharge Functional status at discharge: independent ambulation Time Spent with Patient Time attestation: Total time spent providing and/or coordinating discharge services: Time spent: Greater than 30 minutes Exam Narrative: General: NAD Eyes: EOMI ENT: neck supple Cardiovascular: Regular rate and rhythm Respiratory: Clear to auscultation, respirations even and unlabored on RA Gastrointestinal: Soft, non tender, no rebound or guarding Genitourinary: no suprapubic tenderness Musculoskeletal: No edema Skin: warm, dry Neuro: Alert and oriented x4. Face symmetric. Speech clear. Psych:anxious, tearful DS: Data Data Completed and Pending Completed studies during hospitalization: CT head CT abdomen and pelvis Labs on day of discharge: Labs from last 24 hours 05/06/25 05/05/25 05/05/25 05:35 13:02 12:12 WBC 7.0 RBC 5.32 Hgb 15.4 Hct 44.1 MCV 82.9 MCH 28.9 MCHC 34.9 RDW 13.1 Plt Count 223 MPV 8.1 Immature Gran % (Auto) 0.3 Neut % (Auto) 72.4 Lymph % (Auto) 20.1 [place] % (Auto) 5.6 Eos % (Auto) 0.9 Baso % (Auto) 0.7 Lymph # (Auto) 1.40 [place] # (Auto) 0.4 Eos # (Auto) 0.1 Baso # (Auto) 0.1 Abs Immat Gran (auto) 0.02 Absolute Neuts (auto) 5.0 Absolute Nucleated RBC 0.000 Nucleated RBC % 0.0 PT 13.7 INR 1.1 APTT 25.0 Sodium 135 L 139 Potassium 3.6 3.1 L Chloride 103 104 Carbon Dioxide 27 27 Anion Gap 5 8 BUN 13 14 Creatinine 0.79 0.96 Estim Creat Clear Calc 115 99 Estimated GFR > 60 > 60 Glucose 121 H 97 POC Capillary Glucose Calcium 8.1 L 9.2 Phosphorus 3.5 Magnesium 2.1 Total Bilirubin 1.0 AST 48 ALT 39 Alkaline Phosphatase 73 Total Protein 7.2 Albumin 4.3 Urine Color Yellow Urine Appearance Clear Urine pH 6.5 Ur Specific [place] 1.025 Urine Protein Trace Urine Glucose (UA) Negative Urine Ketones 1+ H Ur Blood (Man) Negative Urine Nitrate Negative Urine Bilirubin Negative Urine Urobilinogen 1.0 Add Ur Microanalysis Reviewed Leukocyte Esterase Rfl Trace H Urine RBC 0-2 Urine WBC 0-5 Ur Squamous Epith Cells None seen Urine Bacteria None seen Urine Casts 0-2 Urine Opiates Screen Negative Urine Methadone Screen Negative Ur Barbiturates Screen Negative Ur Phencyclidine Scrn Negative Ur Amphetamine Screen Positive A U Benzodiazepines Scrn Negative Urine Cocaine Screen Negative U Cannabinoids Screen Positive A RPR Pending HIV 1&2 Ab/P24 Ag 4thGn Negative 05/05/25 11:57 WBC RBC Hgb Hct MCV MCH MCHC RDW Plt Count MPV Immature Gran % (Auto) Neut % (Auto) Lymph % (Auto) [place] % (Auto) Eos % (Auto) Baso % (Auto) Lymph # (Auto) [place] # (Auto) Eos # (Auto) Baso # (Auto) Abs Immat Gran (auto) Absolute Neuts (auto) Absolute Nucleated RBC Nucleated RBC % PT INR APTT Sodium Potassium Chloride Carbon Dioxide Anion Gap BUN Creatinine Estim Creat Clear Calc Estimated GFR Glucose POC Capillary Glucose 91 Calcium Phosphorus Magnesium Total Bilirubin AST ALT Alkaline Phosphatase Total Protein Albumin Urine Color Urine Appearance Urine pH Ur Specific [place] Urine Protein Urine Glucose (UA) Urine Ketones Ur Blood (Man) Urine Nitrate Urine Bilirubin Urine Urobilinogen Add Ur Microanalysis Leukocyte Esterase Rfl Urine RBC Urine WBC Ur Squamous Epith Cells Urine Bacteria Urine Casts Urine Opiates Screen Urine Methadone Screen Ur Barbiturates Screen Ur Phencyclidine Scrn Ur Amphetamine Screen U Benzodiazepines Scrn Urine Cocaine Screen U Cannabinoids Screen RPR HIV 1&2 Ab/P24 Ag 4thGn Discharge Plan Discharge Attending physician on discharge: NnannaBharath Consulting providers: Afsaneh Velázquez Discharging Clinician: Afsaneh Velázquez Anticipated Discharge Date/Time: 05/06/25 11:33 Patient Disposition: Home Activity: as tolerated Diet: as tolerated Discharge Instructions: While in the hospital, patient was evaluated for altered mental status likely secondary to illicit substance exposure. Please avoid illicit substance use. Follow-up with your psychiatrist and counselor as soon as possible. If you continue to have stomach pains, we encourage you to follow-up with a GI specialist. Follow-up with your primary care provider in one week. Return to the emergency department if you develop confusion, hallucinations, suicidal ideation, chest pain, severe abdominal pain, loss of consciousness. Patient Language: Faroese Stand Alone Forms: General Discharge Information Follow-up/Referrals: UNKNOWN,DOCTOR [Primary Care Provider] - 1 Week (Follow-up with your primary care provider in one week. ) Discharge Medications: Continued propranolol 10 mg tablet 10 mg PO Q12H hydroxyzine HCl 50 mg tablet 50 mg PO Q6H PRN (Reason: anxiety) lamotrigine 200 mg tablet 200 mg PO DAILY losartan 50 mg tablet 50 mg PO DAILY trazodone 50 mg tablet 50 mg PO HS PRN (Reason: insomnia) fluvoxamine 100 mg tablet 200 mg PO HS Date of admission: 05/05/25 14:20 Primary Care Provider: UNKNOWN,DOCTOR Admitting Provider: Bharath Mendosa Attending physician on admission: Bharath Mendosa Condition: Stable Hospitalist MIPS Heart Failure (Exclusion) Patient has history of Heart Transplant or Left Ventricular Assistive Device?: No IF YES, STOP HERE Heart Failure (Qualifier) Patient has current or prior documentation of LVEF less than or equal to 40%, or mod/servere depressed LVSF?: No IF NO, STOP HERE
[2025-05-07 06:07] LABS: RPR Non Reactive (Non Reactive)
== END 2025-05-06 13:20 | disposition home or self-care (01) ==
LOC: ANHED 14:17 → ANH3MED 15:08
PROVIDERS: Emergency Medicine; Internal Medicine; Admitting Provider Internal Medicine; Emergency Provider Emergency Medicine; Visit Provider Internal Medicine
DX: R41.0 Disorientation, unspecified (principal); R82.5 Elevated urine levels of drugs, medicaments and biological substances; E87.6 Hypokalemia; F31.62 Bipolar disorder, current episode mixed, moderate; Z72.52 High risk homosexual behavior; F90.9 Attention-deficit hyperactivity disorder, unspecified type; F41.9 Anxiety disorder, unspecified; I10 Essential (primary) hypertension; F10.21 Alcohol dependence, in remission; F17.290 Nicotine dependence, other tobacco product, uncomplicated; F42.9 Obsessive-compulsive disorder, unspecified; G43.909 Migraine, unspecified, not intractable, without status migrainosus; Z11.4 Encounter for screening for human immunodeficiency virus [HIV]
CPT/HCPCS: 36415; 70450; 74177; 80048; 80053; 80307; 81001; 82948; 83735; 84100; 85025; 85610; 85730; 86592; 86703; 93005; 96360; 96361; 99285; A9270; G0378; G0432; J7030; Q9967